=== PATIENT | female | born 1960 | race Caucasian/White ===

== ENCOUNTER → 2016-10-07 | Outpatient (CLI) | payer OTHER ==
[~2016-10-07] MED LIST: FEXO180T56 PO; FLUT16SP12 NS; HYDR-4074 PO; MULT-37 PO; ONDA4TAB10 PO
== END ==
LOC: WC.BC 08:03
DX: Z12.31 Encounter for screening mammogram for malignant neoplasm of breast (principal)
CPT/HCPCS: 77063; G0202